=== PATIENT | female | born 1980 | race Caucasian/White ===

== ENCOUNTER 2020-12-31 20:02 | Emergency (ER) | payer MEDICAID, OTHER, SELFPAY ==
[~2020-12-31] VITALS: Ht 167.6 cm; Wt 102.5 kg
--- NOTE | 2020-12-31 20:31 | NUR ---
PT BIB SISTER VIA POV. PER PT AT APPROX 1800 SHE STARTED HAVING 10/10 PAIN BILAT LOWER ABD QUADRANTS. PT STATES PAIN COMES AND GOES, AND STARTED AFTER EATING AT [employer]. PT STATES SHE DOES NOT HAVE HER NORMAL MENSTRUAL CYCLES DUE TO CONTROL AND STATES SHE COULD BE . PT RESTING IN GURNEY, SISTER AT BEDSIDE, MONITORING IN PLACE, PT GROANING IN PAIN, WILL CONTINUE TO MONITOR.
[2020-12-31] MEDS ORDERED: ONDANSETRON 2MG/ML, 2ML IVPush ONE (21:00)
[2020-12-31] MEDS ORDERED: ONDANSETRON 2MG/ML, 2ML ONE (21:05)
[2020-12-31] MEDS ORDERED: MORPHINE SULFATE 4 MG/ML, 1ML ONE ×2 (21:05→22:16)
[2020-12-31] MEDS: MORPHINE SULFATE 4 MG/ML, 1ML IVPush PRN ×2 (21:31→22:19)
[2020-12-31 21:37] LABS: MICROSCOPIC INDICATED
[2020-12-31 21:47] LABS: BASOPHILS % (AUTO) 0 % (0-1); EOSINOPHILS % (AUTO) 0 % (1-7); LYMPHOCYTES % (AUTO) 7 % (22-44); MEAN CORPUSCULAR HEMOGLOBIN 28.6 pg (27.0-34.8); MEAN CORPUSCULAR HGB CONC 33.9 g/dL (32.4-35.8); MEAN PLATELET VOLUME 7.2 fL (7.4-10.4); MONOCYTES % (AUTO) 5 % (2-9); NEUTROPHILS % (AUTO) 87 % (42-75); PLATELET COUNT 189 x10^3/uL (130-400); RED BLOOD COUNT 4.09 x10^6/uL (3.82-5.3); RED CELL DISTRIBUTION WIDTH 14.7 % (9.6-15.2)
[2020-12-31 22:04] LABS: MD SCAN
--- NOTE | 2020-12-31 22:14 | NUR ---
PT REPORTS PAIN IS BACK TO 10/10. PT NO LONGER MOANING, CONVERSING WITH SISTER IN ROOM, SITTING ON GURNEY. PT STATES THE PAIN IS NO LONGER LIKE CRAMPING BUT FEELS LIKE IT IS BURNING.
[2020-12-31 22:17] LABS: ALANINE AMINOTRANSFERASE 20 U/L (12-78); ALBUMIN 3.1 g/dL (3.4-5.0); ALKALINE PHOSPHATASE 95 U/L (45-117); ANION GAP 10 mmol/L (5-15); BILIRUBIN,TOTAL 0.4 mg/dL (0.2-1.0); CALCIUM 8.8 mg/dL (8.5-10.1); CHLORIDE 104 mmol/L (98-107); CREATININE 0.42 mg/dL (0.55-1.02)
[2020-12-31 22:19] VITALS: BP 138/83
--- NOTE | 2020-12-31 23:24 | NUR ---
PT REPORTS PAIN IS BETTER, /10. PT RESTING IN [facility], MONITORING IN PLACE, [id number], NADN AT THIS TIME.
--- NOTE | 2020-12-31 23:29 | NUR ---
PT BACK FROM [place].
== END 2021-01-01 01:18 | disposition home or self-care (01) ==
LOC: ED 01-01 01:09
DX: O26.891 Other specified pregnancy related conditions, first trimester (principal); R10.32 Left lower quadrant pain; R10.31 Right lower quadrant pain; R11.2 Nausea with vomiting, unspecified; K42.9 Umbilical hernia without obstruction or gangrene; Z3A.13 13 weeks gestation of pregnancy
CPT/HCPCS: 36415; 76801; 80053; 81001; 83690; 84703; 85025; 87086; 96374; 96375; 96376; 99284; J2270; J2405